=== PATIENT | female | born 1940 | race Caucasian/White ===

== ENCOUNTER 2017-01-29 06:07 | Day surgery (SDC) | payer BC, OTHER ==
[2017-01-24 20:29] LABS: HEMATOCRIT 39.9 % (36.0-48.0); HEMOGLOBIN 13.2 g/dL (12.0-16.0)
[2017-01-24 20:37] LABS: BUN (BLOOD UREA NITROGEN) 13 MG/DL (6-23); CALCIUM, SERUM 9.5 MG/DL (8.5-10.4); CHLORIDE, SERUM 98 MMOL/L (96-112); CO2 (CARBON DIOXIDE) 31 MMOL/L (24-34); CREATININE 0.63 MG/DL (0.55-1.02); GFR AFRICAN AMERICAN 102 ML/MIN (>=60); GFR NON AFRICAN AMERICAN 88 ML/MIN (>=60); GLUCOSE, SERUM 162 MG/DL (60-99); POTASSIUM, SERUM 4.1 MMOL/L (3.5-5.3); SODIUM, SERUM 139 MMOL/L (135-148)
[~2017-01-29 06:07] MED LIST: AMARYL4 PO; CELEXA20 PO; FLECAINIDE100 MG PO; GLUCPH PO; HYDROCHLOROT25 MG PO; JANUVIA100 MG PO; LOFIBRA54 MG PO; LOP100 PO; NORV5 PO; SINGULAIR1 PO; SKELAXIN8 PO; X5 PO; XARELTO20 MG PO; ZOCOR40 PO
== END 2017-01-29 12:30 | disposition home or self-care (01) ==
LOC: SDC 06:07
PROVIDERS: Ophthalmology
PROC: 08Q9XZZ Repair Left Cornea, External Approach (ICD-10-PCS; principal; 2017-01-29 08:00)
DX: H18.51 Endothelial corneal dystrophy (principal); I48.91 Unspecified atrial fibrillation; R41.3 Other amnesia; E78.5 Hyperlipidemia, unspecified; I10 Essential (primary) hypertension; J45.909 Unspecified asthma, uncomplicated; E11.9 Type 2 diabetes mellitus without complications; F41.9 Anxiety disorder, unspecified; F32.9 Major depressive disorder, single episode, unspecified; Z88.8 Allergy status to other drugs, medicaments and biological substances; Z90.49 Acquired absence of other specified parts of digestive tract; Z96.641 Presence of right artificial hip joint
CPT/HCPCS: 36415; 80048; 82962; 85014; 85018; 87070; 87102; 87205; 93005; J0690; J2250; J2405; J3010; V2785